=== PATIENT | female | born 2000 | race Two or more races ===

== ENCOUNTER 2024-05-30 17:08 | Emergency (ER) | payer MEDICAID, OTHER ==
[~2024-05-30] VITALS: Ht 160 cm; Wt 100.3 kg
[2024-05-30 17:38] VITALS: BP 136/98
[2024-05-30 17:42] VITALS: PULSE 105; RESP 18; TEMP 99.1; O2SAT 96
--- NOTE | 2024-05-30 17:47 | ED.PDOC ---
Eye-HPI HPI Comments A 24 YEAR OLD FEMALE PRESENTS TO THE ED WITH COMPLAINT OF SORE THROAT AND LEFT EYE INFECTION. PATIENT REPORTS THAT SHE HAS BEEN EXPERIENCING REDNESS AND DRAINAGE TO HER LEFT EYE FOR THE PAST 3 DAYS WITH ASSOCIATED SORE THROAT FOR THE PAST DAY. PATIENT RELAYS THAT SHE HAD LOOKED INTO HER THROAT AND SAW WHITE PATCHES ON HER TONSILS. PATIENT DENIES FEVER, CHILLS, SHORTNESS OF BREATH, CHEST PAIN, ABDOMINAL PAIN, NAUSEA, VOMITING, HEADACHE, OR OTHER COMPLAINTS. NO OTHER SYMPTOMS OR MODIFYING FACTORS AT THIS TIME. Chief Complaint: Eye Problem Time Seen by MD: 17:40 Reviewed Notes: Nurses Notes, Medications, Allergies Home Meds Active Scripts Azithromycin (Azithromycin) 500 Mg Tab, 1 TAB PO DAILY, #5 TAB Prov:PRASANNA TAVARES 05/30/24 Ciprofloxacin HCl (Ophth) (Ciprofloxacin Hydrochlori) 0.3 % Sarahy, 2 DROP OP QID, #5 ML Prov:PRASANNA TAVARES 05/30/24 Information Source: Patient Mode of Arrival: Ambulatory Timing: Days Duration: Since onset Prehospital treatment: None Quality: Red Eye Location: Left Lids: Normal Conjunctiva: Injection, Subconjunctival hemorrhag, Discharge, Yellow Cornea: Normal Pupils: Normal EOM: Normal Fundus: Normal Anterior chamber: Normal Mouth Location: Pharynx Mouth: Normal ENT Ear Exam: Normal, Normal, Normal Nose: Normal Sinuses: Normal Oropharynx: Tonsillar hypertrophy, Red, Exudate Onset: Spontaneous Throat Exposed to: None Eye Context Recent: URI Symptoms History of: None Last Tetanus: Unknown Modifying factors: Nothing Associated signs and symptoms: Discharge, Sore Throat Past Medical History PAST MEDICAL HISTORY: Denies Surgical History: Denies all surgeries MAINTENANCE SUPERVISOR History: 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 History Family History Family History: Reviewed,noncontributory to illness Social History Smoker: Non-Smoker Alcohol: Denies ETOH Use Drugs: Denies Drug Use Lives In: Home Constitutional: denies: chills, diaphoresis, fatigue, fever, malaise, sweats, weakness, others EENTM: reports: eye redness (LEFT), throat pain, throat swelling, voice changes ; denies: blurred vision, double vision, ear bleeding, ear discharge, ear drainage, ear pain, ear ringing, eye pain, hearing loss, mouth pain, mouth swelling, nasal discharge, nose bleeding, nose congestion, nose pain, photophobia, tearing, others Respiratory: denies: cough, hemoptysis, orthopnea, SOB at rest, shortness of breath, SOB with excertion, stridor, wheezing, others Cardiovascular: denies: chest pain, dizzy spells, diaphoresis, Dyspnea on exertion, edema, irregular heart beat, left arm pain, lightheadedness, palpitations, PND, syncope, others Gastrointestinal: denies: abdomen distended, abdominal pain, blood streaked bowels, constipated, diarrhea, dysphagia, difficulty swallowing, hematemesis, melena, nausea, poor appetite, poor fluid intake, rectal bleeding, rectal pain, vomiting, others Genitourinary: denies: abnormal vagina bleeding, burning, dyspareunia, dysuria, flank pain, frequency, hematuria, incontinence, pain, , vagina discharge, urgency, others Neurological: denies: dizziness, fainting, headache, left sided numbness, left sided weakness, numbness, paresthesia, pre-existing deficit, right sided numbness, right sided weakness, seizure, speech problems, tingling, tremors, weakness, others Musculoskeletal: denies: back pain, gout, joint pain, joint swelling, muscle pain, muscle stiffness, neck pain, others Integumetry: denies: bruises, change in color, change in hair/nails, dryness, laceration, lesions, lumps, rash, wounds, others Allergic/Immunocompromised: denies: Difficulty Healing, Frequent Infections, Hives, Itching, others Hematologic/Lymphatic: denies: anemia, blood clots, easy bleeding, easy bruising, swollen glands, others Endocrine: denies: excessive hunger, excessive sweating, excessive thirst, excessive urination, flushing, intolerance to cold, intolerance to heat, unex plained weight gain, unexplained weight loss, others Psychiatric: denies: anxiety, bipolar disorder, depression, hopeless, panic disorder, schizophrenia, sleepless, suicidal, others All Other Systems: Reviewed and Negative Physical Exam General Appearance: No Apparent Distress, Obese HEENT: PERRL/EOMI, Pharyngeal Erythema (TONSILLAR SWELLING WITH EXUDATES. ), TMs Normal, Other (LEFT SUBCONJUNCTIVA HEMORRHAGE WITH YELLOW DISCHARGE. ) Neck: Full Range of Motion, Non-Tender, Normal, Normal Inspection Respiratory: Chest Non-Tender, Lungs Clear, No Accessory Muscle Use, No Respiratory Distress, Normal Breath Sounds Cardiovascular: No Edema, No JVD, No Murmur, No Gallop, Normal Peripheral Pulses, Regular Rate/Rhythm Breast Exam: Deferred Gastrointestinal: No Organomegaly, Non Tender, No Pulsatile Mass, Normal Bowel Sounds, Soft Genitalia: Deferred Pelvic: Deferred Rectal: Deferred Extremities: No calf tenderness, Normal capillary refill, Normal inspection, Normal range of motion, Non-tender, No pedal edema Musculoskeletal : Apperance: Normal Neurologic: Alert, 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 Was a procedure done?: No EENT DIFF Eye: Conjunctivitis, Allergic, Bacterial, Viral Sore Throat: Pharyngitis, Streptococcal, Viral Pharyngitis, Other (EXUDATE TONSILLITIS ) X-Ray, Labs, Meds, VS Vital Signs Date Time Temp Pulse Resp B/P (MAP) Pulse Ox O2 Delivery O2 Flow Rate FiO2 05/30/24 17:42 99.1 96 18 96 99.1 05/30/24 17:42 105 18 96 Room Air 05/30/24 17:38 99.1 105 18 136/98 (111) 96 Current Medications Medications (Trade) Dose Ordered Sig/David Route Start Time Stop Time Status Last Admin Ceftriaxone Sodium (Rocephin) 1,000 mg ONCE ONCE IM 05/30/24 17:45 05/30/24 17:46 DC 05/30/24 17:50 X-Ray, Labs, Meds, VS Comment ROCEPHIN 1GM IM Time of 1ST Reevaluation: 18:20 Reevaluation 1ST: Improved Patient Education/Counseling: Diagnosis, Treatment, Need For Follow Up Family Education/Counseling: Diagnosis, Treatment, Need For Follow Up Medical Screening: No EMC Exist At This Time Departure 1 Departure Time of Disposition: 18:20 Impression: Primary Impression: Tonsillitis with exudate Additional Impression: Acute conjunctivitis of left eye Qualified Codes: H10.32 - Unspecified acute conjunctivitis, left eye Disposition: HOME / SELF CARE / HOMELESS Condition: Stable Additional Instructions: FOLLOW-UP WITH PCP IN 1 TO 2 DAYS. TAKE MEDICATIONS PRESCRIBED. RETURN TO ED FOR ANY NEW OR WORSENING SYMPTOMS. e-Prescriptions Azithromycin (Azithromycin) 500 Mg Tab 1 TAB PO DAILY, #5 TAB Prov: PRASANNA TAVARES 05/30/24 Ciprofloxacin HCl (Ophth) (Ciprofloxacin Hydrochlori) 0.3 % Sarahy 2 DROP OP QID, #5 ML Prov: PRASANNA TAVARES 05/30/24 Discharged With: Self, Relative Critical Care Note Critical Care Time?: No Stability Stability form required: No Heart Score Heart Score: Heart Score Response (Comments) Value History N/A 0 EKG N/A 0 Age N/A 0 Risk Factors N/A 0 Troponin N/A 0 Total 0 I personally scribed for PRASANNA TAVARES ([email or web address]) on 05/30/24 at 17:47. Electronically submitted by Carrillo Block ([email or web address]). PRASANNA TAVARES May 30, 2024 17:47
[2024-05-30] MEDS: cefTRIAXone SOD 1,000 MG VL IM ONE (17:50)
[2024-05-30] MEDS ORDERED: CIPR0.3S67 OP (17:51)
[2024-05-30] MEDS ORDERED: AZIT500T66 PO (17:51)
== END 2024-05-30 17:59 | disposition home or self-care (01) ==
LOC: ER 17:08
DX: J03.90 Acute tonsillitis, unspecified (principal); H10.32 Unspecified acute conjunctivitis, left eye
CPT/HCPCS: 96372; 99283; J0696